=== PATIENT | female | born 1980 | race American Indian/Alaskan Native ===

== ENCOUNTER 2017-03-21 12:27 | Emergency (ER) | payer MEDICAID ==
[2017-03-21 12:42] VITALS: BP 161/102
--- NOTE | 2017-03-21 13:33 | Emergency Department Report ---
Upper Extremity - HPI Chief Complaint: Extremity Injury, Upper Stated Complaint: NUMBNESS IN RT HAND Time Seen by Provider: 03/21/17 13:28 Upper Extremity: Right Elbow, Right Hand, Right Index Finger, Right Middle Finger Occurred When: 2 Days Mechanism: Unsure Severity: mild Symptoms: Yes Numbness, No Pain with Movement, No Deformity, No Limited Range of Movement, No Weakness, No Swelling, No Bruising/Ecchymosis, No Laceration or Abrasion Other History: Patient reports pain and numbness that started in the right index and middle finger which radiates up to the right elbow that started two days ago while sleeping. 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 ED Review of Systems ROS: Stated complaint: NUMBNESS IN RT HAND Other details as noted in HPI Comment: All other systems reviewed and negative Constitutional: denies: chills, fever Respiratory: denies: cough, orthopnea, shortness of breath, SOB with exertion, SOB at rest Cardiovascular: denies: chest pain, palpitations, dyspnea on exertion, orthopnea , edema, syncope Musculoskeletal: arthralgia (right hand and elbow) Neurological: denies: headache, weakness, numbness, paresthesias, confusion, abnormal gait, vertigo ED Past Medical Hx - Past Medical History Hx Hypertension: Yes Hx Asthma: Yes Additional medical history: ANEMIA. OBESITY - Surgical History Additional Surgical History: . TUBAL LIGATION. TONSILLECTOMY - Social History Smoking Status: Never Smoker Substance Use Type: None - Medications Home Medications: Home Medications Medication Instructions Recorded Confirmed Last Taken Type Sulfamethoxazole/Trimethoprim 1 each PO BID #14 tablet 07/09/14 Unknown Rx [Bactrim Ds] traMADol [Ultram 50 MG tab] 50 mg PO Q6HR PRN #20 tablet 07/09/14 Unknown Rx Ibuprofen [Motrin 800 MG tab] 800 mg PO Q8HR PRN #30 tablet 03/21/17 Unknown Rx Upper Extremity Exam - Exam General: Vital signs noted. No distress. Alert and acting appropriately. No neuro focal deficits noted Head and Torso: No HEENT Abnormality, No Neck Tenderness, No Chest/Lungs Abnormality, No Abdominal Tenderness, No Back Tenderness Shoulder Exam: Yes Normal Range of Motion in Shoulder, No Shoulder Tenderness, No Clavicle Tenderness, No Shoulder Deformity, No AC Joint Tenderness Arm Exam: No Arm/Humerus Tenderness, No Arm Deformity Elbow: No Elbow Tenderness, No Normal Range of Motion in Elbow, No Elbow Deformity Forearm: No Forearm Tenderness, No Forearm Deformity, No Pain with Pronation, No Pain with Supination Wrist: Yes Normal ROM in Wrist, No Wrist Tenderness, No Wrist Deformity, No Snuffbox Tenderness, No Pain with Axial Thumb Compression Hand: Yes Normal ROM in Digit(s), No Hand Tenderness, No Hand Deformity, No Digit Tenderness, No Digit(s) Deformity, No Tendon Dysfunction CMS Exam: No Broken Skin, No Normal Distal Pulses, No Normal Capillary Refill, No Normal Distal Sensation ED Course Vital Signs 03/21/17 12:36 Temperature 98.2 F Pulse Rate 79 Respiratory 18 Rate Blood Pressure 161/102 O2 Sat by Pulse 100 Oximetry ED Medical Decision Making - Lab Data Vital Signs 03/21/17 12:36 Temperature 98.2 F Pulse Rate 79 Respiratory 18 Rate Blood Pressure 161/102 O2 Sat by Pulse 100 Oximetry - Medical Decision Making During the course of ED, all other systems are unremarkable except for documentation in HPI. Patient sent home with a prescription for Ibuprofen, instructed to follow up with the selective referral given at discharge, she verbalized understanding - Differential Diagnosis Tendonitis, Right Hand Pain Critical care attestation.: If time is entered above; I have spent that time in minutes in the direct care of this critically ill patient, excluding procedure time. ED Disposition Clinical Impression: Tendonitis Disposition: DC-01 TO HOME OR SELFCARE Is pt being admited?: No Does the pt Need Aspirin: No Condition: Stable Instructions: Tendinitis (ED) Additional Instructions: Take medication as directed. Follow up with the selective referral given at discharge. Return back to the ED for worsening symptoms or concerns Prescriptions: Ibuprofen [Motrin 800 MG tab] 800 mg PO Q8HR PRN #30 tablet PRN Reason: Pain Referrals: KARMEN TESFAYE MD [Staff Physician] - 3-5 Days Forms: Work/School Release Form(ED) Time of Disposition: 13:29
== END 2017-03-21 13:46 | disposition home or self-care (01) ==
LOC: ED 12:27
DX: M77.9 Enthesopathy, unspecified (principal); I10 Essential (primary) hypertension; J45.909 Unspecified asthma, uncomplicated
CPT/HCPCS: 99282

== ENCOUNTER 2017-05-02 17:52 | Emergency (ER) | payer MEDICAID ==
--- NOTE | 2017-05-02 19:35 | XRay Report ---
FINAL REPORT EXAM: XR KNEE 3V RT HISTORY: RIGHT KNEE PAIN TECHNIQUE: AP, oblique, and lateral views of the right knee PRIORS: None. FINDINGS: No acute fracture or dislocation is seen. The soft tissues are unremarkable with no evidence for suprapatellar joint effusion. Joint spaces are maintained and bony mineralization is normal. IMPRESSION: Negative views of the right knee.
--- NOTE | 2017-05-02 20:12 | Emergency Department Report ---
ED Lower Extremity HPI - General Chief Complaint: Extremity Injury, Lower Stated Complaint: KNEE PAIN Time Seen by Provider: 05/02/17 19:50 Source: patient Mode of arrival: Ambulatory Limitations: No Limitations - History of Present Illness Initial Comments: Patient comes in the ER today with complaints of right knee pain. Patient states that her knee has been bothering her for several years but that the past 2-3 days it has really been hurting a lot more. Patient notes that she has seen her doctor for it in the past and he just keeps saying there is fluid in there and heels like he is not doing anything for her. Patient states that her knee feels very unstable frequently and that it is worse when trying to get out of her car, going up and down stairs or put any stress on her knee. Patient denies any recent injuries to her knee. Patient denies any other complaints. MD Complaint: knee injury - Related Data Home Medications Medication Instructions Recorded Confirmed Last Taken Ferrous Sulfate [Feosol] 325 mg PO QDAY 05/02/17 05/02/17 1 Day Ago amLODIPine [Norvasc] 10 mg PO DAILY 05/02/17 05/02/17 1 Day Ago Previous Rx's Medication Instructions Recorded Last Taken Type predniSONE [Deltasone] 20 mg PO QDAY #18 tab 05/02/17 Unknown Rx traMADol [Ultram] 50 mg PO Q6HR PRN #20 tablet 05/02/17 Unknown Rx Allergies Allergy/AdvReac Type Severity Reaction Status Date / Time Penicillins Allergy Shortness Verified 05/02/17 18:17 of Breath ED Review of Systems ROS: Stated complaint: KNEE PAIN Other details as noted in HPI Constitutional: denies: chills, fever Eyes: denies: eye pain, eye discharge, vision change ENT: denies: ear pain, throat pain Respiratory: denies: cough, shortness of breath, wheezing Cardiovascular: denies: chest pain, palpitations Endocrine: no symptoms reported Gastrointestinal: denies: abdominal pain, nausea, diarrhea Genitourinary: denies: urgency, dysuria, discharge Musculoskeletal: joint swelling, arthralgia. denies: back pain Skin: denies: rash, lesions Neurological: denies: headache, weakness, paresthesias Psychiatric: denies: anxiety, depression Hematological/Lymphatic: denies: easy bleeding, easy bruising ED Past Medical Hx - Past Medical History Hx Hypertension: Yes Hx Asthma: Yes Additional medical history: ANEMIA. OBESITY - Surgical History Additional Surgical History: . TUBAL LIGATION. TONSILLECTOMY - Social History Smoking Status: Never Smoker Substance Use Type: Alcohol - Medications Home Medications: Home Medications Medication Instructions Recorded Confirmed Last Taken Type Ferrous Sulfate [Feosol] 325 mg PO QDAY 05/02/17 05/02/17 1 Day Ago History amLODIPine [Norvasc] 10 mg PO DAILY 05/02/17 05/02/17 1 Day Ago History predniSONE [Deltasone] 20 mg PO QDAY #18 tab 05/02/17 Unknown Rx traMADol [Ultram] 50 mg PO Q6HR PRN #20 tablet 05/02/17 Unknown Rx ED Physical Exam - General Limitations: No Limitations General appearance: alert, in no apparent distress - Head Head exam: Present: atraumatic, normocephalic - Eye Eye exam: Present: normal appearance - ENT ENT exam: Present: mucous membranes moist - Neck Neck exam: Present: normal inspection - Respiratory Respiratory exam: Present: normal lung sounds bilaterally. Absent: respiratory distress - Cardiovascular Cardiovascular Exam: Present: regular rate, normal rhythm. Absent: systolic murmur, diastolic murmur, rubs, gallop - GI/Abdominal GI/Abdominal exam: Present: soft, normal bowel sounds - Extremities Exam Extremities exam: Present: normal inspection, tenderness (right knee tenderness along the distal MCL as well as left anterior joint line. Positive pain with Kia stress test her right knee.), normal capillary refill. Absent: full ROM (Limited range of motion of right knee secondary to pain), pedal edema, joint swelling, calf tenderness - Back Exam Back exam: Present: normal inspection - Neurological Exam Neurological exam: Present: alert, oriented X3 - Psychiatric Psychiatric exam: Present: normal affect, normal mood - Skin Skin exam: Present: warm, dry, intact, normal color. Absent: rash ED Course Vital Signs 05/02/17 18:19 Temperature 98.3 F Pulse Rate 81 Respiratory 17 Rate Blood Pressure 160/100 O2 Sat by Pulse 100 Oximetry ED Lower Extremity MDM - Radiology Data Radiology results: report reviewed X-ray right knee: No acute bone pathology noted on x-ray - Medical Decision Making Patient is nontoxic and hemodynamically stable. X-ray results review discuss the patient room. Clinically, I suspect patient to have a meniscus injury versus MCL strain. I will refer patient to orthopedic for further evaluation and possible MRI to further evaluate her complaint. In triage, patient found to have elevated blood pressure. Patient states she has a known history of high blood pressure but she has not taken her blood pressure medicine today. Patient denies any chest pain, shortness of breath, headache, dizziness. I have encouraged patient to go home and take her medications and follow-up with her doctor to ensure that her blood pressure is well-controlled. Patient is in agreement with treatment plan patient is stable for discharge. Critical care attestation.: If time is entered above; I have spent that time in minutes in the direct care of this critically ill patient, excluding procedure time. ED Disposition Clinical Impression: Right knee pain, Internal derangement of knee Disposition: DC-01 TO HOME OR SELFCARE Is pt being admited?: No Does the pt Need Aspirin: No Condition: Good Instructions: Knee Sprain (ED), Knee Pain (ED) Prescriptions: predniSONE [Deltasone] 20 mg PO QDAY #18 tab traMADol [Ultram] 50 mg PO Q6HR PRN #20 tablet PRN Reason: Pain Referrals: PRIMARY CAREMD [Primary Care Provider] - 3-5 Days ROSE JENSEN MD [Staff Physician] - 3-5 Days Forms: Work/School Release Form(ED) Time of Disposition: 20:13
[2017-05-02 20:25] VITALS: BP 160/73
== END 2017-05-02 20:25 | disposition home or self-care (01) ==
LOC: ED 17:52
DX: M23.91 Unspecified internal derangement of right knee (principal); I10 Essential (primary) hypertension; J45.909 Unspecified asthma, uncomplicated; Z88.0 Allergy status to penicillin
CPT/HCPCS: 99283

== ENCOUNTER 2017-06-06 07:19 | Emergency (ER) | payer MEDICAID ==
[2017-06-06 08:04] LABS: Basophils % (Auto) 0.9 % (0.0-1.8); Eosinophils % (Auto) 2.4 % (0.0-4.3); Hematocrit 35.5 % (30.3-42.9); Hemoglobin 11.2 gm/dl (10.1-14.3); Mean Corpuscular HGB Conc 32 % (30-34); Mean Corpuscular Hemoglobin 26 pg (28-32); Mean Corpuscular Volume 82 fl (79-97); Platelet Count 358 K/mm3 (140-440); Red Blood Count 4.35 M/mm3 (3.65-5.03); Red Cell Distribution Width 15.4 % (13.2-15.2); White Blood Count 8.5 K/mm3 (4.5-11.0)
[2017-06-06 08:30] LABS: Anion Gap 15 mmol/L; Blood Urea Nitrogen 6 mg/dL (7-17); Calcium 8.5 mg/dL (8.4-10.2); Carbon Dioxide 25 mmol/L (22-30); Chloride 101.7 mmol/L (98-107); Glucose 88 mg/dL (65-100); Potassium 4.2 mmol/L (3.6-5.0); Sodium 137 mmol/L (137-145)
[2017-06-06] MEDS ORDERED: NORCO 10/325 PO ONE (12:46)
--- NOTE | 2017-06-06 13:02 | Emergency Department Report ---
ED Chest Pain HPI - General Chief Complaint: Chest Pain Stated Complaint: CHEST PAIN Time Seen by Provider: 06/06/17 12:46 Source: patient Mode of arrival: Ambulatory Limitations: No Limitations - History of Present Illness Initial Comments: Patient is a 31-year-old female past history of hypertension who presents with right shoulder and right chest pain that has been going on for the last couple days patient states that pain as a 7 out of 10. Doesn't radiate it is an achy type of pain and moving her right shoulder makes the pain worse nothing really makes it better. Patient states that the onset of her symptoms were gradual in is a sore type pain. Patient denies having any shortness of breath or any leg swelling. Severity scale (0 -10): 7 - Related Data Home Medications Medication Instructions Recorded Confirmed Last Taken Ferrous Sulfate [Feosol] 325 mg PO QDAY 05/02/17 05/02/17 1 Day Ago amLODIPine [Norvasc] 10 mg PO DAILY 05/02/17 05/02/17 1 Day Ago Previous Rx's Medication Instructions Recorded Last Taken Type predniSONE [Deltasone] 20 mg PO QDAY #18 tab 05/02/17 Unknown Rx traMADol [Ultram] 50 mg PO Q6HR PRN #20 tablet 05/02/17 Unknown Rx Acetaminophen [Tylenol] 1,000 mg PO Q6HR #40 tablet 06/06/17 Unknown Rx Ibuprofen [Motrin 400 MG tab] 400 mg PO Q8H PRN #30 tablet 06/06/17 Unknown Rx Allergies Allergy/AdvReac Type Severity Reaction Status Date / Time Penicillins Allergy Shortness Verified 05/02/17 18:17 of Breath Heart Score - HEART Score History: Slightly suspicious EKG: Normal Age: < 45 Risk factors: 1-2 risk factors Troponin: < normal limit HEART Score: 1 ED Review of Systems ROS: Stated complaint: CHEST PAIN Other details as noted in HPI Constitutional: denies: chills, fever Eyes: denies: eye pain, eye discharge, vision change ENT: denies: ear pain, throat pain Respiratory: denies: cough, shortness of breath, wheezing Cardiovascular: chest pain. denies: palpitations Endocrine: no symptoms reported Gastrointestinal: denies: abdominal pain, nausea, diarrhea Genitourinary: denies: urgency, dysuria, discharge Musculoskeletal: other (shoulder pain). denies: back pain, joint swelling, arthralgia Skin: denies: rash, lesions Neurological: denies: headache, weakness, paresthesias Psychiatric: denies: anxiety, depression Hematological/Lymphatic: denies: easy bleeding, easy bruising ED Past Medical Hx - Past Medical History Previous Medical History?: Yes Hx Hypertension: Yes Hx Asthma: Yes Additional medical history: ANEMIA. OBESITY - Surgical History Past Surgical History?: Yes Additional Surgical History: . TUBAL LIGATION. TONSILLECTOMY - Social History Smoking Status: Never Smoker Substance Use Type: None - Medications Home Medications: Home Medications Medication Instructions Recorded Confirmed Last Taken Type Ferrous Sulfate [Feosol] 325 mg PO QDAY 05/02/17 05/02/17 1 Day Ago History amLODIPine [Norvasc] 10 mg PO DAILY 05/02/17 05/02/17 1 Day Ago History predniSONE [Deltasone] 20 mg PO QDAY #18 tab 05/02/17 Unknown Rx traMADol [Ultram] 50 mg PO Q6HR PRN #20 tablet 05/02/17 Unknown Rx Acetaminophen [Tylenol] 1,000 mg PO Q6HR #40 tablet 06/06/17 Unknown Rx Ibuprofen [Motrin 400 MG tab] 400 mg PO Q8H PRN #30 tablet 06/06/17 Unknown Rx ED Physical Exam - General Limitations: No Limitations General appearance: alert, in no apparent distress - Head Head exam: Present: atraumatic, normocephalic - Eye Eye exam: Present: normal appearance - ENT ENT exam: Present: mucous membranes moist - Neck Neck exam: Present: normal inspection - Respiratory Respiratory exam: Present: normal lung sounds bilaterally, chest wall tenderness. Absent: respiratory distress - Cardiovascular Cardiovascular Exam: Present: regular rate, normal rhythm. Absent: systolic murmur, diastolic murmur, rubs, gallop - GI/Abdominal GI/Abdominal exam: Present: soft, normal bowel sounds - Extremities Exam Extremities exam: Present: full ROM, tenderness (right shoulder) - Back Exam Back exam: Present: normal inspection - Neurological Exam Neurological exam: Present: alert, oriented X3 - Psychiatric Psychiatric exam: Present: normal affect, normal mood - Skin Skin exam: Present: warm, dry, intact, normal color. Absent: rash ED Course Vital Signs 06/06/17 06/06/17 07:30 11:57 Temperature 98.2 F 98.4 F Pulse Rate 68 66 Respiratory 20 Rate Blood Pressure 137/96 Blood Pressure 120/78 [Left] O2 Sat by Pulse 100 100 Oximetry - Reevaluation(s) Reevaluation #1: 06/06/17 13:59 Patient is feeling better. I will send Patient home DEON score - Deon Score Age > 65: (0) No Aspirin use within the Past 7 Days: (0) No 3 or more CAD Risk Factors: (0) No 2 or more Angina events in past 24 hrs: (0) No Known CAD with more than 50% Stenosis: (0) No Elevated Cardiac Markers: (0) No ST Deviation Greater than 0.5mm: (0) No DEON Score: 0 ED Medical Decision Making - Lab Data Result diagrams: 06/06/17 07:51 06/06/17 07:51 Lab Results 06/06/17 06/06/17 06/06/17 Range/Units 07:45 07:51 07:51 WBC 8.5 (4.5-11.0) K/mm3 RBC 4.35 (3.65-5.03) M/mm3 Hgb 11.2 (10.1-14.3) gm/dl Hct 35.5 (30.3-42.9) % MCV 82 (79-97) fl MCH 26 L (28-32) pg MCHC 32 (30-34) % RDW 15.4 H (13.2-15.2) % Plt Count 358 (140-440) K/mm3 Lymph % (Auto) 42.6 H (13.4-35.0) % Sutter % (Auto) 8.4 H (0.0-7.3) % Eos % (Auto) 2.4 (0.0-4.3) % Baso % (Auto) 0.9 (0.0-1.8) % Lymph # 3.6 (1.2-5.4) K/mm3 Sutter # 0.7 (0.0-0.8) K/mm3 Eos # 0.2 (0.0-0.4) K/mm3 Baso # 0.1 (0.0-0.1) K/mm3 Seg Neutrophils % 45.7 (40.0-70.0) % Seg Neutrophils # 3.9 (1.8-7.7) K/mm3 Sodium 137 (137-145) mmol/L Potassium 4.2 (3.6-5.0) mmol/L Chloride 101.7 (98-107) mmol/L Carbon Dioxide 25 (22-30) mmol/L Anion Gap 15 mmol/L BUN 6 L (7-17) mg/dL Creatinine 0.5 L (0.7-1.2) mg/dL Estimated GFR > 60 ml/min BUN/Creatinine Ratio 12.00 % Glucose 88 (65-100) mg/dL POC Glucose 87 (70-105) Calcium 8.5 (8.4-10.2) mg/dL Troponin T < 0.010 (0.00-0.029) ng/mL 06/06/17 Range/Units 10:30 WBC (4.5-11.0) K/mm3 RBC (3.65-5.03) M/mm3 Hgb (10.1-14.3) gm/dl Hct (30.3-42.9) % MCV (79-97) fl MCH (28-32) pg MCHC (30-34) % RDW (13.2-15.2) % Plt Count (140-440) K/mm3 Lymph % (Auto) (13.4-35.0) % Sutter % (Auto) (0.0-7.3) % Eos % (Auto) (0.0-4.3) % Baso % (Auto) (0.0-1.8) % Lymph # (1.2-5.4) K/mm3 Sutter # (0.0-0.8) K/mm3 Eos # (0.0-0.4) K/mm3 Baso # (0.0-0.1) K/mm3 Seg Neutrophils % (40.0-70.0) % Seg Neutrophils # (1.8-7.7) K/mm3 Sodium (137-145) mmol/L Potassium (3.6-5.0) mmol/L Chloride (98-107) mmol/L Carbon Dioxide (22-30) mmol/L Anion Gap mmol/L BUN (7-17) mg/dL Creatinine (0.7-1.2) mg/dL Estimated GFR ml/min BUN/Creatinine Ratio % Glucose (65-100) mg/dL POC Glucose (70-105) Calcium (8.4-10.2) mg/dL Troponin T < 0.010 (0.00-0.029) ng/mL - EKG Data -: EKG Interpreted by Me - EKG Data 06/06/17 13:59 EKG shows normal sinus rhythm with sinus arrhythmia low voltage QRS no ST segment elevation normal axis. - Medical Decision Making Chief medical diagnosis: Costochondritis Differential medical diagnosis: Bruised rib, shoulder pain, non-STEMI I will obtain oral analgesic medication, CBC, troponin, EKG, CMP Patient is feeling better I we'll send patient home lab work is unrevealing. Gave the patient discharge instructions and additional verbal discharge orders were given. Critical care attestation.: If time is entered above; I have spent that time in minutes in the direct care of this critically ill patient, excluding procedure time. ED Disposition Clinical Impression: Chest wall pain Shoulder pain, right Qualifiers: Chronicity: acute Qualified Code(s): M25.511 - Pain in right shoulder Disposition: DC-01 TO HOME OR SELFCARE Is pt being admited?: No Does the pt Need Aspirin: No Condition: Stable Instructions: Costochondritis (ED) Prescriptions: Acetaminophen [Tylenol] 1,000 mg PO Q6HR #40 tablet Ibuprofen [Motrin 400 MG tab] 400 mg PO Q8H PRN #30 tablet PRN Reason: Pain Referrals: PRIMARY CARE, [Primary Care Provider] - 3-5 Days Forms: Work/School Release Form(ED)
[2017-06-06 15:20] VITALS: BP 137/85
== END 2017-06-06 15:26 | disposition home or self-care (01) ==
LOC: ED 07:19
DX: R07.89 Other chest pain (principal); M25.511 Pain in right shoulder; I10 Essential (primary) hypertension; J45.909 Unspecified asthma, uncomplicated; Z88.0 Allergy status to penicillin
CPT/HCPCS: 36415; 80048; 82962; 84484; 85025; 99284

== ENCOUNTER 2017-07-14 16:44 | Emergency (ER) | payer MEDICAID ==
[2017-07-14] MEDS ORDERED: CLEOCIN IM ONE (20:27)
[2017-07-14] MEDS ORDERED: NORCO 7.5/325 PO ONE (20:29)
[2017-07-14] MEDS ORDERED: TORADOL IM ONE (20:29)
[2017-07-14 20:57] VITALS: BP 179/107
--- NOTE | 2017-07-14 21:15 | Emergency Department Report ---
Abscess Boil HPI - HPI Chief Complaint: Dental/Oral Stated Complaint: FACE SWOLLEN Duration: 1 Day Location: Other (right jaw) Severity: Mild History: Yes Pain, No Fever, No Purulent Drainage, No Numbness, No Foreign Body , No Previous History, No Insect Bite HPI: 36 year old female presents to ED with right facial/lower jaw swelling x1 day. patient is stable, neurologically intact and in no acute distress. patient states she tried to go to dentist today but they were closed. patient states she would like RX for abx and would like to sign out AMA for personal reasons. Home Medications: Home Medications Medication Instructions Recorded Confirmed Last Taken Ferrous Sulfate [Feosol] 325 mg PO QDAY 05/02/17 05/02/17 1 Day Ago amLODIPine [Norvasc] 10 mg PO DAILY 05/02/17 05/02/17 1 Day Ago Previous Rx's Medication Instructions Recorded Last Taken Type predniSONE [Deltasone] 20 mg PO QDAY #18 tab 05/02/17 Unknown Rx traMADol [Ultram] 50 mg PO Q6HR PRN #20 tablet 05/02/17 Unknown Rx Acetaminophen [Tylenol] 1,000 mg PO Q6HR #40 tablet 06/06/17 Unknown Rx Ibuprofen [Motrin 400 MG tab] 400 mg PO Q8H PRN #30 tablet 06/06/17 Unknown Rx Clindamycin [Clindamycin CAP] 300 mg PO Q8H #21 cap 07/14/17 Unknown Rx Allergies/Adverse Reactions: Allergies Allergy/AdvReac Type Severity Reaction Status Date / Time Penicillins Allergy Shortness Verified 05/02/17 18:17 of Breath ED Review of Systems ROS: Stated complaint: FACE SWOLLEN Other details as noted in HPI Constitutional: denies: chills, fever Eyes: denies: eye pain, eye discharge, vision change ENT: dental pain. denies: ear pain, throat pain Respiratory: denies: cough, shortness of breath, wheezing Cardiovascular: denies: chest pain, palpitations Endocrine: no symptoms reported Gastrointestinal: denies: abdominal pain, nausea, diarrhea Genitourinary: denies: urgency, dysuria, discharge Musculoskeletal: denies: back pain, joint swelling, arthralgia Skin: denies: rash, lesions Neurological: denies: headache, weakness, numbness, paresthesias, confusion, abnormal gait, vertigo Psychiatric: denies: anxiety, depression Hematological/Lymphatic: denies: easy bleeding, easy bruising ED Past Medical Hx - Past Medical History Hx Hypertension: Yes Hx Asthma: Yes Additional medical history: ANEMIA. OBESITY - Surgical History Additional Surgical History: . TUBAL LIGATION. TONSILLECTOMY - Social History Smoking Status: Never Smoker Substance Use Type: None - Medications Home Medications: Home Medications Medication Instructions Recorded Confirmed Last Taken Type Ferrous Sulfate [Feosol] 325 mg PO QDAY 05/02/17 05/02/17 1 Day Ago History amLODIPine [Norvasc] 10 mg PO DAILY 05/02/17 05/02/17 1 Day Ago History predniSONE [Deltasone] 20 mg PO QDAY #18 tab 05/02/17 Unknown Rx traMADol [Ultram] 50 mg PO Q6HR PRN #20 tablet 05/02/17 Unknown Rx Acetaminophen [Tylenol] 1,000 mg PO Q6HR #40 tablet 06/06/17 Unknown Rx Ibuprofen [Motrin 400 MG tab] 400 mg PO Q8H PRN #30 tablet 06/06/17 Unknown Rx Clindamycin [Clindamycin CAP] 300 mg PO Q8H #21 cap 07/14/17 Unknown Rx ED Abscess Boil Physical Exam - Exam General: Vital signs noted. No distress. Alert and acting appropriately. Size: 5 cm Exam: Yes Tenderness, Yes Fluctuance, Yes Normal Neurologic Exam, Yes Normal Circulation, No Surrounding Cellulites/Erythema, No Lymphangitis, No Crepitation , No Heart Murmur ED Course Vital Signs 07/14/17 07/14/17 17:09 20:56 Temperature 98.5 F 98.5 F Pulse Rate 96 H 71 Respiratory 16 18 Rate Blood Pressure 127/81 Blood Pressure 179/107 [Right] O2 Sat by Pulse 100 100 Oximetry Critical care attestation.: If time is entered above; I have spent that time in minutes in the direct care of this critically ill patient, excluding procedure time. ED Medical Decision Making - Radiology Data I have recommended CT scan of face/soft tissue and patient has refused due to wanting to leave AMA. - Medical Decision Making 36 year old female presents to ED with left sided facial/lower jaw abscess x1 day. patient states she would like to sign out AMA even though I have recommend bloodwork and CT scan with contrast. Despite my efforts Ms. Monteiro has decided to leave against medical advice. She has normal mental status and full decisional capacity. The patient understands her condition and the risks of leaving AMA, including but not limited to permanent disability, , etc., and has had an opportunity to ask questionis about her medical condition. The patient's sister is also aware of the condition and the patient's desire to leave AMA. The patient has been informed that she may return for care at any time, and has been referred to her local medical physician for follow up [facility]. patient states she will follow up with her dentist in the morning. I have also offered to give patient her BP medication before she leaves and she has refused stating she will take her BP medication when she gets home. patient will be given RX for PO antibiotics ED Disposition Clinical Impression: Dental abscess Disposition: LEFT AGAINST MED ADVICE Is pt being admited?: No Does the pt Need Aspirin: No Condition: Undetermined Instructions: Dental Abscess (ED) Prescriptions: Clindamycin [Clindamycin CAP] 300 mg PO Q8H #21 cap Referrals: PRIMARY CARE, [Primary Care Provider] - [facility] () Forms: AMA Form, Work/School Release Form(ED)
== END 2017-07-14 21:15 | disposition left against medical advice (07) ==
LOC: ED 16:44
DX: K04.7 Periapical abscess without sinus (principal); I10 Essential (primary) hypertension; J45.909 Unspecified asthma, uncomplicated
CPT/HCPCS: 96372; 99282; J1885

== ENCOUNTER 2019-08-07 18:23 | Emergency (ER) | payer MEDICAID ==
--- NOTE | 2019-08-07 19:09 | Emergency Department Report ---
Blank Doc - Documentation Documentation: 38-year-old female that present with left flank pain and dysuria. This initial assessment/diagnostic orders/clinical plan/treatment(s) is/are subject to change based on patient's health status, clinical progression and re- assessment by fellow clinical providers in the ED. Further treatment and workup at subsequent clinical providers discretion. Patient/guardians urged not to elope from the ED as their condition may be serious if not clinically assessed and managed. Initial orders include: 1- Patient sent to [facility] for further evaluation and treatment 2- UA
[2019-08-07 19:58] LABS: HCG Qualitative,Urine Negative (Negative)
[2019-08-07 19:59] LABS: Bilirubin,Urine NEG (Negative); Blood,Urine NEG (Negative); Color,Urine Yellow (Yellow); Mucus,Urine 2+ /HPF; Protein,Urine <15 mg/dL mg/dL (Negative); Urobilinogen,Urine < 2.0 mg/dL (<2.0); WBC,Urine < 1.0 /HPF (0.0-6.0)
[2019-08-07] MEDS ORDERED: ACETAMINOPHEN 325 MG TAB PO ONE (23:06)
[2019-08-07] MEDS ORDERED: KETOROLAC 30 MG/1 ML INJ IM ONE (23:06)
--- NOTE | 2019-08-07 23:07 | Emergency Department Report ---
ED General Adult HPI - General Chief complaint: Back Pain/Injury Stated complaint: BACK PAIN Time Seen by Provider: 08/07/19 19:09 Source: patient, RN notes reviewed, old records reviewed Mode of arrival: Ambulatory Limitations: No Limitations - History of Present Illness Initial comments: This is a 38-year-old morbidly obese female who is not known to this provider previously. She states that she is not , and states that she has not delivered her given within the past 6 weeks. She presents to the ER with a complaint of a few days bilateral paralumbar back pain, aching and throbbing. She reports that she does a lot of heavy lifting for work. She denies dysuria, urinary frequency, and urinary hesitancy. She endorses a nonspecific sensation of pressure. She denies vaginal bleeding. She makes no complaint of extremity weakness and or numbness. There is no complaint of bladder or bowel retention and/or incontinence. Endorses a secondary complaint of dependent edema/swelling in the bilateral lower extremities, present for months and years. This is not new, worsened or different when compared to prior. She's taken [id number] Tylenol, with minimal relief in her lower back pain. -: Gradual, days(s) Location: back Radiation: non-radiation Quality: aching Consistency: intermittent Improves with: rest Worsens with: movement - Related Data Home Medications Medication Instructions Recorded Confirmed Last Taken Ferrous Sulfate [Feosol] 325 mg PO QDAY 05/02/17 05/02/17 1 Day Ago ~05/01/17 amLODIPine [Norvasc] 10 mg PO DAILY 05/02/17 05/02/17 1 Day Ago ~05/01/17 Previous Rx's Medication Instructions Recorded Last Taken Type predniSONE [Deltasone] 20 mg PO QDAY #18 tab 05/02/17 Unknown Rx traMADol [Ultram] 50 mg PO Q6HR PRN #20 tablet 05/02/17 Unknown Rx Acetaminophen [Tylenol] 1,000 mg PO Q6HR #40 tablet 06/06/17 Unknown Rx Ibuprofen [Motrin 400 MG tab] 400 mg PO Q8H PRN #30 tablet 06/06/17 Unknown Rx Clindamycin [Clindamycin CAP] 300 mg PO Q8H #21 cap 07/14/17 Unknown Rx Acetaminophen [Non-Aspirin Extra 500 mg PO Q6HR PRN #30 tablet 08/07/19 Unknown Rx Strength] Ibuprofen [Motrin] 600 mg PO Q8H PRN #30 tablet 08/07/19 Unknown Rx Allergies Allergy/AdvReac Type Severity Reaction Status Date / Time Penicillins Allergy Shortness Verified 05/02/17 18:17 of Breath ED Review of Systems ROS: Stated complaint: BACK PAIN Other details as noted in HPI Constitutional: denies: fever Cardiovascular: denies: chest pain Gastrointestinal: denies: abdominal pain Genitourinary: denies: urgency, dysuria, frequency, hematuria, discharge, abnormal menses Musculoskeletal: back pain Neurological: denies: numbness, paresthesias, confusion, abnormal gait ED Past Medical Hx - Past Medical History Hx Hypertension: Yes Hx Asthma: Yes Additional medical history: ANEMIA. OBESITY - Surgical History Additional Surgical History: . TUBAL LIGATION. TONSILLECTOMY - Social History Smoking Status: Never Smoker Substance Use Type: None - Medications Home Medications: Home Medications Medication Instructions Recorded Confirmed Last Taken Type Ferrous Sulfate [Feosol] 325 mg PO QDAY 05/02/17 05/02/17 1 Day Ago History ~05/01/17 amLODIPine [Norvasc] 10 mg PO DAILY 05/02/17 05/02/17 1 Day Ago History ~05/01/17 predniSONE [Deltasone] 20 mg PO QDAY #18 tab 05/02/17 Unknown Rx traMADol [Ultram] 50 mg PO Q6HR PRN #20 tablet 05/02/17 Unknown Rx Acetaminophen [Tylenol] 1,000 mg PO Q6HR #40 tablet 06/06/17 Unknown Rx Ibuprofen [Motrin 400 MG tab] 400 mg PO Q8H PRN #30 tablet 06/06/17 Unknown Rx Clindamycin [Clindamycin CAP] 300 mg PO Q8H #21 cap 07/14/17 Unknown Rx Acetaminophen [Non-Aspirin Extra 500 mg PO Q6HR PRN #30 tablet 08/07/19 Unknown Rx Strength] Ibuprofen [Motrin] 600 mg PO Q8H PRN #30 tablet 08/07/19 Unknown Rx ED Physical Exam - General Limitations: No Limitations General appearance: alert, in no apparent distress, obese, other (upon initial evaluation, patient sitting comfortably, on examination chair, playing on a cellular phone) - Head Head exam: Present: atraumatic, normocephalic - Eye Eye exam: Present: normal appearance, EOMI. Absent: nystagmus - ENT ENT exam: Present: normal exam, normal orophraynx, mucous membranes moist, normal external ear exam - Neck Neck exam: Present: normal inspection, full ROM. Absent: tenderness, meningismus - Respiratory Respiratory exam: Present: normal lung sounds bilaterally. Absent: respiratory distress - Cardiovascular Cardiovascular Exam: Present: regular rate, normal rhythm, normal heart sounds. Absent: bradycardia, tachycardia, irregular rhythm, systolic murmur, diastolic murmur, rubs, gallop - GI/Abdominal GI/Abdominal exam: Present: soft. Absent: distended, tenderness, guarding, rebound, rigid, pulsatile mass - Extremities Exam Extremities exam: Present: normal inspection, full ROM, pedal edema (one plus edema bilateral lower extremities. There is no palpable cord. There is a negative Homans sign.), other (2+ pulses noted in the bilateral upper, lower extremities. There is no long bone tenderness. Musculoskeletal compartments are soft. The pelvis is stable.). Absent: calf tenderness - Back Exam Back exam: Present: normal inspection, full ROM, paraspinal tenderness. Absent: CVA tenderness (R), CVA tenderness (L), vertebral tenderness - Neurological Exam Neurological exam: Present: alert, oriented X3, normal gait, other (there is no facial droop. The tongue is midline. Extraocular movements are intact bilaterally. Patient speaking in full complete sentences. Shoulder shrug is intact bilaterally. Hearing is grossly intact bilaterally. Visual acuity intact to finger counting and color perception at a close distance. 5/5 strength 4 extremities. Sensation intact to light touch in 4 extremities.). Absent: motor sensory deficit - Psychiatric Psychiatric exam: Present: normal affect, normal mood - Skin Skin exam: Present: warm, dry, intact, normal color. Absent: rash ED Course Vital Signs 08/07/19 08/07/19 08/07/19 19:11 23:14 23:15 Temperature 98.3 F Pulse Rate 80 Respiratory 18 18 18 Rate Blood Pressure 149/93 O2 Sat by Pulse 98 Oximetry ED Medical Decision Making - Lab Data Vital Signs 08/07/19 08/07/19 08/07/19 19:11 23:14 23:15 Temperature 98.3 F Pulse Rate 80 Respiratory 18 18 18 Rate Blood Pressure 149/93 O2 Sat by Pulse 98 Oximetry Lab Results 08/07/19 Range/Units Unknown Urine Color Yellow (Yellow) Urine Turbidity Clear (Clear) Urine pH 6.0 (5.0-7.0) Ur Specific [place] 1.017 (1.003-1.030) Urine Protein <15 mg/dl (Negative) mg/dL Urine Glucose (UA) Neg (Negative) mg/dL Urine Ketones Tr (Negative) mg/dL Urine Blood Neg (Negative) Urine Nitrite Neg (Negative) Ur Reducing Substances Not Reportable Urine Bilirubin Neg (Negative) Urine Ictotest Not Reportable Urine Urobilinogen < 2.0 (<2.0) mg/dL Ur Leukocyte Esterase Neg (Negative) Urine WBC (Auto) < 1.0 (0.0-6.0) /HPF Urine RBC (Auto) 3.0 (0.0-6.0) /HPF U Epithel Cells (Auto) 4.0 (0-13.0) /HPF Urine Mucus 2+ /HPF Urine HCG, Qual Negative (Negative) - Medical Decision Making Differential diagnosis, including but not limited to: Musculoskeletal lower back pain, dependent edema Assessment and plan: 38-year-old female who appears to be obese, with reproducible paralumbar back pain, walking with a steady gait, no pulsatile abdominal mass, no neurovascular deficits, likely presenting with nonemergent back pain, likely secondary to mechanical load on lower back, likely secondary to obesity. We discussed diet, lifestyle modifications, weight loss, physical activities as tolerated. The patient's pain we treated. Her exam and physical are not consistent with emergent cause of back pain, such as AAA, or epidural compression syndrome. Secondary complaint of chronic lower extremity dependent edema. She is not hypoxic, she is not tachycardic, there is no JVD, and she is clear breath sounds bilaterally. This does not represent an emergency medical condition, she can use compression stockings [id number], and she can follow-up with an outpatient primary care doctor for this. Critical care attestation.: If time is entered above; I have spent that time in minutes in the direct care of this critically ill patient, excluding procedure time. ED Disposition Clinical Impression: Lower back pain, Dependent edema, Obesity Disposition: -01 TO HOME OR SELFCARE Is pt being admited?: No Does the pt Need Aspirin: No Condition: Stable Additional Instructions: As we discussed, back pain likely coming from muscles and connective-tissue in the lower back, likely secondary to patient being overweight/being obese. Recommend avoidance of heavy lifting, and physical activities as tolerated. Patient may alternate ibuprofen, [id number], 600 mg with food, every 6 hours as needed for pain, with Tylenol, 650 mg, every 4-6 hours, with food, as needed for pain. Maximum daily dose of Tylenol 2 g per 24 hours. Pain will likely continue and persist over the next few weeks and months. Recommend physical activities as tolerated, and weight loss as patient is able to. Patient should follow-up with the primary care doctor within the next 4-6 weeks. Return to the emergency room right away with new, worsened, different symptoms, or symptoms not present on the initial emergency room evaluation. Patient may return to work, but should participate and light duty, not lifting anymore than 10 or 15 pounds, until cleared to do so by her primary care doctor. For dependent edema/swelling in the lower extremities, recommend weight loss, and [id number] compression stockings. Patient may follow-up for this complaint with the primary care doctor within the next 4-6 weeks. Referrals: [facility] [Provider Group] - 3-5 Days [facility] [Provider Group] - 3-5 Days Forms: Work/School Release Form
[2019-08-08 00:12] VITALS: BP 162/98
== END 2019-08-07 23:55 | disposition home or self-care (01) ==
LOC: ED 18:23
DX: M54.5 Low back pain (principal); R60.0 Localized edema; I10 Essential (primary) hypertension; J45.909 Unspecified asthma, uncomplicated; E66.9 Obesity, unspecified; Z68.41 Body mass index [BMI] 40.0-44.9, adult; Z98.51 Tubal ligation status; Z86.2 Personal history of diseases of the blood and blood-forming organs and certain disorders involving the immune mechanism; Z79.899 Other long term (current) drug therapy; Z88.0 Allergy status to penicillin
CPT/HCPCS: 81001; 81025; 96372; 99283; J1885

== ENCOUNTER 2019-08-31 19:47 | Emergency (ER) | payer MEDICAID ==
[2019-08-31 21:34] VITALS: BP 159/110
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
[2019-08-31] MEDS ORDERED: TETANUS,DIPH,PERTUSS(ACELL) VACCINE 0.5 ML SYRINGE IM ONE (21:56)
[2019-08-31] MEDS ORDERED: cephALEXin 500 MG CAP PO ONE (21:57)
[2019-08-31] MEDS ORDERED: HYDROcodone/ACETAMINOPHEN 5-325 MG TAB PO ONE (21:57)
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
== END 2019-08-31 23:10 | disposition home or self-care (01) ==
LOC: ED 19:47
DX: S71.111A Laceration without foreign body, right thigh, initial encounter (principal); I10 Essential (primary) hypertension; J45.909 Unspecified asthma, uncomplicated; D64.9 Anemia, unspecified; E66.9 Obesity, unspecified; Z98.51 Tubal ligation status; Z90.89 Acquired absence of other organs; Z79.899 Other long term (current) drug therapy; Z88.0 Allergy status to penicillin; Y04.0XXA Assault by unarmed brawl or fight, initial encounter; Y93.89 Activity, other specified; Y92.89 Other specified places as the place of occurrence of the external cause; Y99.8 Other external cause status
CPT/HCPCS: 90715

== ENCOUNTER 2019-09-17 23:34 | Emergency (ER) | payer MEDICAID ==
--- NOTE | 2019-09-18 00:37 | Emergency Department Report ---
ED General Adult HPI - General Chief complaint: Extremity Injury, Lower Stated complaint: BILATERAL SWELLIG OF LEGS Time Seen by Provider: 09/18/19 00:31 Source: patient Mode of arrival: Ambulatory Limitations: No Limitations - History of Present Illness Initial comments: 39-year-old female with history of asthma and hypertension who presents to ED with bilateral lower leg swelling. Patient reports pain in the bilateral lower legs as well. Patient states it has been going on for a while and was told previously by another physician that her symptoms were due to her standing for long periods of time at her job. Pt states symptoms became worse approx 1.5 wks ago. She reports intermittent episodes of shortness of breath, no dyspnea currently. Patient states she is not currently on any blood pressure medication. She reports history of DVT 14 years ago when she was with her son. -: days(s) (10) Location: left, right, lower extremity Quality: aching Consistency: intermittent Improves with: immobilization Worsens with: movement, other (palpation) Associated Symptoms: shortness of breath. denies: chest pain, cough, fever/chills, nausea/vomiting Treatments Prior to Arrival: none - Related Data Home Medications Medication Instructions Recorded Confirmed Last Taken Ferrous Sulfate [Feosol] 325 mg PO QDAY 05/02/17 05/02/17 1 Day Ago ~05/01/17 amLODIPine [Norvasc] 10 mg PO DAILY 05/02/17 05/02/17 1 Day Ago ~05/01/17 Previous Rx's Medication Instructions Recorded Last Taken Type predniSONE [Deltasone] 20 mg PO QDAY #18 tab 05/02/17 Unknown Rx traMADoL [Ultram] 50 mg PO Q6HR PRN #20 tablet 05/02/17 Unknown Rx Acetaminophen [Tylenol] 1,000 mg PO Q6HR #40 tablet 06/06/17 Unknown Rx Ibuprofen [Motrin 400 MG tab] 400 mg PO Q8H PRN #30 tablet 06/06/17 Unknown Rx Clindamycin [Clindamycin CAP] 300 mg PO Q8H #21 cap 07/14/17 Unknown Rx Acetaminophen [Non-Aspirin Extra 500 mg PO Q6HR PRN #30 tablet 08/07/19 Unknown Rx Strength] Ibuprofen [Motrin] 600 mg PO Q8H PRN #30 tablet 08/07/19 Unknown Rx cephALEXin [Keflex] 500 mg PO Q8H 10 Days #30 cap 08/31/19 Unknown Rx traMADoL [Ultram] 50 mg PO Q6HR PRN #12 tablet 08/31/19 Unknown Rx hydroCHLOROthiazide [Hctz] 12.5 mg PO QDAY #30 capsule 09/18/19 Unknown Rx Allergies Allergy/AdvReac Type Severity Reaction Status Date / Time Penicillins Allergy Shortness Verified 05/02/17 18:17 of Breath ED Review of Systems ROS: Stated complaint: BILATERAL SWELLIG OF LEGS Other details as noted in HPI Comment: All other systems reviewed and negative Constitutional: denies: chills, fever Respiratory: shortness of breath. denies: cough Cardiovascular: denies: chest pain Musculoskeletal: as per HPI ED Past Medical Hx - Past Medical History Previous Medical History?: Yes Hx Hypertension: Yes Hx Asthma: Yes Additional medical history: ANEMIA. OBESITY - Surgical History Past Surgical History?: Yes Additional Surgical History: . TUBAL LIGATION. TONSILLECTOMY - Social History Smoking Status: Never Smoker Substance Use Type: None - Medications Home Medications: Home Medications Medication Instructions Recorded Confirmed Last Taken Type Ferrous Sulfate [Feosol] 325 mg PO QDAY 05/02/17 05/02/17 1 Day Ago History ~05/01/17 amLODIPine [Norvasc] 10 mg PO DAILY 05/02/17 05/02/17 1 Day Ago History ~05/01/17 predniSONE [Deltasone] 20 mg PO QDAY #18 tab 05/02/17 Unknown Rx traMADoL [Ultram] 50 mg PO Q6HR PRN #20 tablet 05/02/17 Unknown Rx Acetaminophen [Tylenol] 1,000 mg PO Q6HR #40 tablet 06/06/17 Unknown Rx Ibuprofen [Motrin 400 MG tab] 400 mg PO Q8H PRN #30 tablet 06/06/17 Unknown Rx Clindamycin [Clindamycin CAP] 300 mg PO Q8H #21 cap 07/14/17 Unknown Rx Acetaminophen [Non-Aspirin Extra 500 mg PO Q6HR PRN #30 tablet 08/07/19 Unknown Rx Strength] Ibuprofen [Motrin] 600 mg PO Q8H PRN #30 tablet 08/07/19 Unknown Rx cephALEXin [Keflex] 500 mg PO Q8H 10 Days #30 cap 08/31/19 Unknown Rx traMADoL [Ultram] 50 mg PO Q6HR PRN #12 tablet 08/31/19 Unknown Rx hydroCHLOROthiazide [Hctz] 12.5 mg PO QDAY #30 capsule 09/18/19 Unknown Rx ED Physical Exam - General Limitations: No Limitations General appearance: alert, in no apparent distress, obese - Head Head exam: Present: atraumatic, normocephalic - Eye Eye exam: Present: normal appearance, EOMI - ENT ENT exam: Present: mucous membranes moist - Neck Neck exam: Present: normal inspection - Respiratory Respiratory exam: Present: normal lung sounds bilaterally. Absent: respiratory distress, wheezes, rales - Cardiovascular Cardiovascular Exam: Present: regular rate, normal rhythm - GI/Abdominal GI/Abdominal exam: Present: soft. Absent: distended, tenderness - Extremities Exam Extremities exam: Present: other (2+ nonpitting edema to bilateral lower legs with tenderness to anterior and posterior lower leg) - Neurological Exam Neurological exam: Present: alert, oriented X3 - Psychiatric Psychiatric exam: Present: normal affect, normal mood - Skin Skin exam: Present: warm, dry, intact, normal color ED Course Vital Signs 09/17/19 09/18/19 09/18/19 23:38 01:21 04:11 Temperature 97.9 F 98.6 F 98.6 F Pulse Rate 76 67 67 Respiratory 18 16 16 Rate Blood Pressure 164/94 Blood Pressure 152/89 157/93 [Left] O2 Sat by Pulse 99 100 100 Oximetry ED Medical Decision Making - Lab Data Result diagrams: 09/18/19 00:39 09/18/19 00:39 - Radiology Data Radiology results: report reviewed, image reviewed - Medical Decision Making 39-year-old female presents to ED with pain and swelling to bilateral lower legs. Patient states it has been going on for a while and was told previously by another physician that her symptoms were due to her standing for long periods of time at her job. Pt states symptoms became worse approx 1.5 wks ago. She has anterior and posterior tenderness to bilateral lower legs. There is no unilateral swelling. She reported mild shortness of breath. I do not believe that the patient has a PE. She is having no respiratory distress, sleeping comfortably, not tachycardic, not tachypneic, O2 sats are normal. Also, there is also no DVT present on ultrasound, so PE is unlikely. Ultrasound is negative for DVT, only shows greater saphenous vein thrombosis. Advised urgent f/u w/ her PCP. BP remained elevated, so prescription given. Return precautions given. - Differential Diagnosis CHF, DVT Critical care attestation.: If time is entered above; I have spent that time in minutes in the direct care of this critically ill patient, excluding procedure time. ED Disposition Clinical Impression: Lower extremity pain, bilateral, Hypertension Disposition: TO HOME OR SELFCARE Is pt being admited?: No Condition: Stable Instructions: Leg Edema (ED), Hypertension (ED) Additional Instructions: You have a clot in the left greater saphenous vein. This is not considered a deep vein thrombosis (DVT) so we will not put you on blood thinners at this time. Please follow up with your regular doctor as soon as possible. Prescriptions: hydroCHLOROthiazide [Hctz] 12.5 mg PO QDAY #30 capsule Referrals: PRIMARY CARE, [Primary Care Provider] - 3-5 Days [facility] [Provider Group] - 3-5 Days Forms: Work/School Release Form(ED) Time of Disposition: 04:10
[2019-09-18 01:10] LABS: Basophils # (Auto) 0.1 K/mm3 (0.0-0.1); Eosinophils # (Auto) 0.2 K/mm3 (0.0-0.4); Eosinophils % (Auto) 2.7 % (0.0-4.3); Hematocrit 32.6 % (30.3-42.9); Hemoglobin 10.6 gm/dl (10.1-14.3); Lymphocytes # (Auto) 2.8 K/mm3 (1.2-5.4); Lymphocytes % (Auto) 36.7 % (13.4-35.0); Mean Corpuscular HGB Conc 32 % (30-34); Mean Corpuscular Volume 78 fl (79-97); Monocytes # (Auto) 0.5 K/mm3 (0.0-0.8); Monocytes % (Auto) 6.4 % (0.0-7.3); Platelet Count 409 K/mm3 (140-440); Red Blood Count 4.16 M/mm3 (3.65-5.03); Red Cell Distribution Width 15.9 % (13.2-15.2)
[2019-09-18 01:33] LABS: BUN/Creatinine Ratio 20; Blood Urea Nitrogen 10 mg/dL (7-17); Calcium 8.5 mg/dL (8.4-10.2); Hemolysis Index 12
--- NOTE | 2019-09-18 01:48 | XRay Report ---
CHEST 2 VIEWS INDICATION / CLINICAL INFORMATION: Shortness of breath. Bilateral lower extremity pain and swelling. COMPARISON: None available. FINDINGS: SUPPORT DEVICES: None. HEART / MEDIASTINUM: No significant abnormality. LUNGS / PLEURA: No significant pulmonary or pleural abnormality. No pneumothorax. ADDITIONAL FINDINGS: No significant additional findings. IMPRESSION: 1. No acute abnormality of the chest. Signer Name: Johnny Brock MD Signed: 09/18/2019 1:44 AM Workstation Name: [id number]
--- NOTE | 2019-09-18 03:28 | Vascular Lab Report ---
DUPLEX DOPPLER LOWER EXTREMITY VEINS, BILATERAL INDICATION: Bilateral lower extremity edema for 10 days. TECHNIQUE: Duplex doppler imaging was performed through the veins of both lower extremities using venous anaya umer and other maneuvers. COMPARISON: No relevant prior imaging study available. FINDINGS: Right Common Femoral vein: Negative. Right Superficial Femoral vein: Negative. Right Popliteal vein: Negative. Right Calf veins: Negative. Left Common Femoral vein: Negative. Left Superficial Femoral vein: Negative. Left Popliteal vein: Negative. Left Calf veins: Negative. Additional findings: There is thrombosis of the left greater saphenous vein at the level of the knee. Soft tissue edema is also seen at this location. IMPRESSION: 1. No sonographic evidence for DVT in either lower extremity. 2. Thrombosis of the left greater saphenous vein. Signer Name: Johnny Brock MD Signed: 09/18/2019 3:23 AM Workstation Name: [email or web address]
[2019-09-18 04:11] VITALS: BP 157/93
== END 2019-09-18 04:30 | disposition home or self-care (01) ==
LOC: ED 23:34
DX: M79.604 Pain in right leg (principal); M79.605 Pain in left leg; R22.43 Localized swelling, mass and lump, lower limb, bilateral; I10 Essential (primary) hypertension; J45.909 Unspecified asthma, uncomplicated; D64.9 Anemia, unspecified; Z98.51 Tubal ligation status; Z90.89 Acquired absence of other organs; Z79.899 Other long term (current) drug therapy; Z88.0 Allergy status to penicillin
CPT/HCPCS: 36415; 71046; 80048; 83880; 84703; 85025; 85379; 93970

== ENCOUNTER 2019-12-25 21:23 | Emergency (ER) | payer MEDICAID ==
[2019-12-25 21:32] VITALS: BP 163/99
--- NOTE | 2019-12-25 21:40 | Emergency Department Report ---
ED Back Pain/Injury HPI - General Chief Complaint: Dyspnea/Respdistress Stated Complaint: BACK PAIN Time Seen by Provider: 12/25/19 21:31 Source: patient Limitations: No Limitations - History of Present Illness Initial Comments: This is a 39-year-old female nontoxic, well nourished in appearance, no acute signs of distress presents to the ED with c/o of acute on chronic lower back pain. Patient stated that the past 2 days she was moving and developed this pain. Patient denies any trauma. Denies any bladder or bowel instability. Patient denies any urinary symptoms. Patient denies any numbness or tingling. Patient also has a secondary complaint of a dry nonproductive cough after a chorolin leak at work x2 days. Patient denies any chest pain, shortness of breathe, fever, chills, nausea, vomiting, headache, stiff neck, abdominal pain, numbness or tingling. Patient denies any recent travels, long car rides, or recent hospital stays. MD Complaint: back pain, other (cough) -: days(s) Similar Symptoms Previously: Yes Radiation: none Severity: mild Severity scale (0 -10): 3 Consistency: intermittent Improves With: immobilization, sitting upright Worsens With: movement, walking Context: while lifting, turning/twisting Associated Symptoms: cough. denies: confusion, weakness, chest pain, numbness, difficulty walking, difficulty urinating, diaphoresis, incontinence, fever/chills, constipation, headaches, abdominal pain, loss of appetite, malaise, nausea/vomiting, rash, seizure, shortness of breath, syncope - Related Data Home Medications Medication Instructions Recorded Confirmed Last Taken Ferrous Sulfate [Feosol] 325 mg PO QDAY 05/02/17 05/02/17 1 Day Ago ~05/01/17 amLODIPine [Norvasc] 10 mg PO DAILY 05/02/17 05/02/17 1 Day Ago ~05/01/17 Previous Rx's Medication Instructions Recorded Last Taken Type predniSONE [Deltasone] 20 mg PO QDAY #18 tab 05/02/17 Unknown Rx traMADoL [Ultram] 50 mg PO Q6HR PRN #20 tablet 05/02/17 Unknown Rx Acetaminophen [Tylenol] 1,000 mg PO Q6HR #40 tablet 06/06/17 Unknown Rx Ibuprofen [Motrin 400 MG tab] 400 mg PO Q8H PRN #30 tablet 06/06/17 Unknown Rx Clindamycin [Clindamycin CAP] 300 mg PO Q8H #21 cap 07/14/17 Unknown Rx Acetaminophen [Non-Aspirin Extra 500 mg PO Q6HR PRN #30 tablet 08/07/19 Unknown Rx Strength] Ibuprofen [Motrin] 600 mg PO Q8H PRN #30 tablet 08/07/19 Unknown Rx cephALEXin [Keflex] 500 mg PO Q8H 10 Days #30 cap 08/31/19 Unknown Rx traMADoL [Ultram] 50 mg PO Q6HR PRN #12 tablet 08/31/19 Unknown Rx hydroCHLOROthiazide [Hctz] 12.5 mg PO QDAY #30 capsule 09/18/19 Unknown Rx Allergies Allergy/AdvReac Type Severity Reaction Status Date / Time Penicillins Allergy Shortness Verified 05/02/17 18:17 of Breath ED Review of Systems ROS: Stated complaint: BACK PAIN Other details as noted in HPI Constitutional: denies: chills, fever Eyes: denies: eye pain, eye discharge, vision change ENT: denies: ear pain, throat pain Respiratory: cough. denies: shortness of breath, wheezing Cardiovascular: denies: chest pain, palpitations Endocrine: no symptoms reported Gastrointestinal: denies: abdominal pain, nausea, vomiting, diarrhea Genitourinary: denies: urgency, dysuria, discharge Musculoskeletal: back pain. denies: joint swelling, arthralgia Skin: denies: rash, lesions Neurological: denies: headache, weakness, paresthesias Psychiatric: denies: anxiety, depression Hematological/Lymphatic: denies: easy bleeding, easy bruising ED Past Medical Hx - Past Medical History Hx Hypertension: Yes Hx Asthma: Yes Additional medical history: ANEMIA. OBESITY - Surgical History Additional Surgical History: . TUBAL LIGATION. TONSILLECTOMY - Social History Smoking Status: Never Smoker Substance Use Type: None - Medications Home Medications: Home Medications Medication Instructions Recorded Confirmed Last Taken Type Ferrous Sulfate [Feosol] 325 mg PO QDAY 05/02/17 05/02/17 1 Day Ago History ~05/01/17 amLODIPine [Norvasc] 10 mg PO DAILY 05/02/17 05/02/17 1 Day Ago History ~05/01/17 predniSONE [Deltasone] 20 mg PO QDAY #18 tab 05/02/17 Unknown Rx traMADoL [Ultram] 50 mg PO Q6HR PRN #20 tablet 05/02/17 Unknown Rx Acetaminophen [Tylenol] 1,000 mg PO Q6HR #40 tablet 06/06/17 Unknown Rx Ibuprofen [Motrin 400 MG tab] 400 mg PO Q8H PRN #30 tablet 06/06/17 Unknown Rx Clindamycin [Clindamycin CAP] 300 mg PO Q8H #21 cap 07/14/17 Unknown Rx Acetaminophen [Non-Aspirin Extra 500 mg PO Q6HR PRN #30 tablet 08/07/19 Unknown Rx Strength] Ibuprofen [Motrin] 600 mg PO Q8H PRN #30 tablet 08/07/19 Unknown Rx cephALEXin [Keflex] 500 mg PO Q8H 10 Days #30 cap 08/31/19 Unknown Rx traMADoL [Ultram] 50 mg PO Q6HR PRN #12 tablet 08/31/19 Unknown Rx hydroCHLOROthiazide [Hctz] 12.5 mg PO QDAY #30 capsule 09/18/19 Unknown Rx ED Physical Exam - General Limitations: No Limitations General appearance: alert, in no apparent distress - Head Head exam: Present: atraumatic, normocephalic - Eye Eye exam: Present: normal appearance - ENT ENT exam: Present: normal exam, normal orophraynx - Neck Neck exam: Present: normal inspection, full ROM. Absent: tenderness, meningismus, lymphadenopathy - Respiratory Respiratory exam: Present: normal lung sounds bilaterally. Absent: respiratory distress, wheezes, rales, rhonchi, stridor, chest wall tenderness, accessory muscle use, decreased breath sounds, prolonged expiratory - Cardiovascular Cardiovascular Exam: Present: regular rate, normal rhythm, normal heart sounds. Absent: bradycardia, tachycardia, irregular rhythm, systolic murmur, diastolic murmur, rubs, gallop - GI/Abdominal GI/Abdominal exam: Present: soft, normal bowel sounds. Absent: distended, tenderness, guarding, rebound, rigid, diminished bowel sounds - Extremities Exam Extremities exam: Present: normal inspection, full ROM, normal capillary refill. Absent: tenderness - Back Exam Back exam: Present: normal inspection, full ROM, paraspinal tenderness (lumbar paraspinal ). Absent: tenderness, CVA tenderness (R), CVA tenderness (L), muscle spasm, vertebral tenderness, rash noted - Expanded Back Exam Expanded Back exam: Absent: saddle anesthesia Back exam: Negative Straight Leg Raising: Left, Right - Neurological Exam Neurological exam: Present: alert, oriented X3, normal gait - Psychiatric Psychiatric exam: Present: normal affect, normal mood - Skin Skin exam: Present: warm, dry, intact, normal color. Absent: rash ED Course Vital Signs 12/25/19 21:31 Temperature 97.9 F Pulse Rate 76 Respiratory 18 Rate Blood Pressure 163/99 O2 Sat by Pulse 100 Oximetry - Reevaluation(s) Reevaluation #1: 12/25/19 21:38 Patient is speaking in full sentences with no signs of distress noted. ED Medical Decision Making - Medical Decision Making 39-year-old female that presents with cough and low back strain. Patient is stable was examined by me. Patient was educated on OTC suppurative care and medications. Vital signs are stable. There is no spinal tenderness. There is no cauda equina syndrome during examination. No bladder or bowel instability. Patient was referred to Follow-up with a primary care doctor in 3-5 days or if symptoms worsen and continue return to emergency room as soon as possible. At time of discharge, the patient does not seem toxic or ill in appearance. No acute signs of distress noted. Patient agrees to discharge treatment plan of care. No further questions noted by the patient. Critical care attestation.: If time is entered above; I have spent that time in minutes in the direct care of this critically ill patient, excluding procedure time. ED Disposition Clinical Impression: Cough Low back strain Qualifiers: Encounter type: initial encounter Qualified Code(s): S39.012A - Strain of muscle, fascia and tendon of lower back, initial encounter Disposition: 07 MED SCREENING EXAM-LEFT Is pt being admited?: No Does the pt Need Aspirin: No Condition: Stable Instructions: Muscle Strain (ED) Additional Instructions: Follow-up with a primary care doctor in 3-5 days or if symptoms worsen and continue return to the emergency department as soon as possible. Referrals: PRIMARY CAREMD [Referring] - 3-5 Days NITIN JAQUEZ MD [Staff Physician] - 3-5 Days [facility] [Outside] - 3-5 Days
== END 2019-12-25 22:00 | disposition left against medical advice (07) ==
LOC: ED 21:23
DX: S39.012A Strain of muscle, fascia and tendon of lower back, initial encounter (principal); R05 Cough; I10 Essential (primary) hypertension; J45.909 Unspecified asthma, uncomplicated; D64.9 Anemia, unspecified; E66.9 Obesity, unspecified; Z68.42 Body mass index [BMI] 45.0-49.9, adult; Z98.890 Other specified postprocedural states; Z90.89 Acquired absence of other organs; Z98.51 Tubal ligation status; Z79.1 Long term (current) use of non-steroidal anti-inflammatories (NSAID); Z79.899 Other long term (current) drug therapy; Z88.0 Allergy status to penicillin; X58.XXXA Exposure to other specified factors, initial encounter; Y93.89 Activity, other specified; Y92.89 Other specified places as the place of occurrence of the external cause; Y99.8 Other external cause status
CPT/HCPCS: 99281